=== PATIENT | female | born 1925 | race Caucasian/White ===

== ENCOUNTER 2016-11-26 12:39 | Emergency (ER) | payer MEDICARE, BC ==
[~2016-11-26] VITALS: Ht 162.6 cm; Wt 64.1 kg
[~2016-11-26 12:39] MED LIST: AMLO5TAB2 PO; ASPI-515 PO; ATEN25TA PO; CEPH-375 PO; CEPH-376 PO; CLON-365 PO; DIPH25CA61 PO; FEXO1TAB29 PO; FLUO40CA9 PO; FURO40TA6 PO; GABA600T2 PO; GLIP2.5T3 PO; IPRA0.2S35 INH; IPRA15SP2 INH; LINE600T37 PO; LISI5TAB7 PO; LORA0.5T PO; LOVA20TA2 PO; METO10TA2 PO; METO10TA82 PO; METR500T PO; OMEP40CA6 PO; POTA20TA91 PO; QUET100T PO; SERT25TA PO; SIMV10TA3 PO; SUCR1TAB26 PO
[2016-11-26] MEDS ORDERED: MAGN400T36 PO (13:13)
[2016-11-26] MEDS ORDERED: QUET400T PO (13:13)
[2016-11-26] MEDS ORDERED: CRAN300T PO (13:13)
[2016-11-26] MEDS ORDERED: GUAI-103 PO (13:13)
[2016-11-26] MEDS ORDERED: DIPH25CA61 PO (13:13)
[2016-11-26] MEDS ORDERED: CHOL20003 PO (13:13)
[2016-11-26] MEDS ORDERED: SODIUM CHLORIDE 0.9% 1,000ML IVBOLUS ONE (13:30)
[2016-11-26] MEDS ORDERED: SODIUM CHLORIDE FLUSH 10ML SYR IVF ONE (13:30)
[2016-11-26 13:59] LABS: BLOOD UREA NITROGEN 18 mg/dL (7-18)
[2016-11-26 14:04] LABS: ASPARTATE AMINO TRANSFERASE 16 U/L (15-37)
[2016-11-26 14:52] VITALS: BP 159/96
== END 2016-11-26 15:07 | disposition home or self-care (01) ==
LOC: ED 13:16
DX: R19.7 Diarrhea, unspecified (principal); K21.9 Gastro-esophageal reflux disease without esophagitis; I10 Essential (primary) hypertension; E11.9 Type 2 diabetes mellitus without complications; J44.9 Chronic obstructive pulmonary disease, unspecified; E78.00 Pure hypercholesterolemia, unspecified; Z90.49 Acquired absence of other specified parts of digestive tract; Z88.0 Allergy status to penicillin; Z87.891 Personal history of nicotine dependence
CPT/HCPCS: 36415; 80053; 83605; 83690; 85025; 96360; 96361; 99285; J7030

== ENCOUNTER 2017-04-10 17:43 | Inpatient (IN) | payer MEDICARE, BC ==
[~2017-04-10] VITALS: Ht 165.1 cm; Wt 62.0 kg
[~2017-04-10 17:43] MED LIST changes: +CHOL2000 PO; +CRAN300T PO; +GUAI-103 PO; +MAGN400T36 PO; +QUET400T PO; -SUCR1TAB26 PO; +SUCR1TAB33 PO
[2017-04-10] MEDS ORDERED: SODIUM CHLORIDE 0.9% 1,000 ML IV ONE (17:55)
[2017-04-10] MEDS ORDERED: SODIUM CHLORIDE FLUSH 10ML SYR IVF ONE (18:00)
[2017-04-10 18:12] LABS: HEMATOCRIT 34.6 % (34.6-47.8); HEMOGLOBIN 11.3 g/dL (11.7-16.4); WHITE BLOOD COUNT 13.5 x10^3/uL (3.4-10)
[2017-04-10 18:24] LABS: ASPARTATE AMINO TRANSFERASE 21 U/L (15-37); BLOOD UREA NITROGEN 21 mg/dL (7-18)
[2017-04-10 18:41] LABS: IS PT STATUS REG ER OR PRE ER? YES
[2017-04-10] MEDS ORDERED: QUET200T PO (18:50)
[2017-04-10] MEDS ORDERED: SIMV10TA3 PO (18:50)
[2017-04-10] MEDS ORDERED: mucinex PO (18:50)
[2017-04-10] MEDS ORDERED: FLUO40CA2 PO (18:50)
[2017-04-10] MEDS ORDERED: DIPH25CA61 PO (18:50)
[2017-04-10] MEDS ORDERED: ASPI-496 PO (18:50)
[2017-04-10] MEDS ORDERED: ATEN25TA PO (18:50)
[2017-04-10] MEDS ORDERED: OMEP-110 PO (18:50)
[2017-04-10] MEDS ORDERED: FEXO180T72 PO (18:50)
[2017-04-10] MEDS ORDERED: GABA600T2 PO (18:50)
[2017-04-10 19:39] LABS: PATH.CAST-FLAG NOT PRESENT; SPERM-FLAG NOT PRESENT; SRC-FLAG NOT PRESENT; XTAL-FLAG NOT PRESENT; YLC-FLAG NOT PRESENT
[2017-04-10] MEDS ORDERED: POLYETHYLENE GLYCOL 17 GM PACKET PO PRN (21:00)
[2017-04-10] MEDS ORDERED: ACETAMINOPHEN 325 MG TABLET PO PRN (21:00)
[2017-04-10] MEDS ORDERED: BISACODYL 10 MG SUPP PR PRN (21:00)
[2017-04-10] MEDS ORDERED: ONDANSETRON 2MG/ML, 2ML IVPush PRN (21:00)
[2017-04-10] MEDS ORDERED: CEFTRIAXONE PMX 1GM/50ML 50 ML ONE (21:17)
[2017-04-10] MEDS ORDERED: CEFTRIAXONE PMX 1GM/50ML 50 ML IV ONE (21:30)
[2017-04-10] MEDS ORDERED: ALBUTEROL SULFATE 2.5 MG/3 ML ONE (22:29)
[2017-04-10] MEDS ORDERED: ALBUTEROL SULFATE 2.5 MG/3 ML NPPB PRN (23:00)
[2017-04-10] MEDS: ATENOLOL 25 MG TABLET PO SCH (23:05)
[2017-04-10] MEDS: SIMVASTATIN 10 MG TABLET PO SCH (23:05)
[2017-04-10] MEDS: QUETIAPINE 200 MG TABLET PO SCH (23:05)
[2017-04-10] MEDS: HEPARIN 5,000 UNITS/ML, 1ML SQ SCH (23:06)
[2017-04-10] MEDS: LEVOFLOXACIN/PMX 500MG/100ML 100 ML IV SCH (23:07)
[2017-04-11] MEDS: LINEZOLID PMX 600MG/300ML 300 ML IV SCH ×2 (00:43→12:49)
[2017-04-11 01:36] VITALS: BP 101/55
[2017-04-11] MEDS: HEPARIN 5,000 UNITS/ML, 1ML SQ SCH ×3 (05:00→20:37)
[2017-04-11 05:40] LABS: HEMATOCRIT 30.1 % (34.6-47.8); HEMOGLOBIN 9.8 g/dL (11.7-16.4); WHITE BLOOD COUNT 12.3 x10^3/uL (3.4-10)
[2017-04-11 05:47] LABS: BLOOD UREA NITROGEN 20 mg/dL (7-18)
[2017-04-11 05:52] LABS: ASPARTATE AMINO TRANSFERASE 14 U/L (15-37)
[2017-04-11 07:35] VITALS: BP 91/46
[2017-04-11] MEDS: ALBUTEROL SULFATE 2.5 MG/3 ML NPPB SCH ×4 (07:40→20:04)
[2017-04-11] MEDS: GABAPENTIN 300 MG CAPSULE PO SCH (10:01)
[2017-04-11] MEDS: ASPIRIN 81 MG TABLET EC PO SCH (10:01)
[2017-04-11] MEDS: QUETIAPINE 200 MG TABLET PO SCH ×2 (10:01→20:37)
[2017-04-11] MEDS: LORATADINE 10 MG TABLET PO SCH (10:02)
[2017-04-11] MEDS: FLUOXETINE 20 MG CAPSULE PO SCH (10:02)
[2017-04-11] MEDS: SENNA/DOCUSATE TABLET PO SCH (10:02)
[2017-04-11] MEDS: SODIUM CHLORIDE 0.9% 1,000 ML IV SCH (12:49)
[2017-04-11 13:16] VITALS: BP 98/51
[2017-04-11 19:35] VITALS: BP 107/62
[2017-04-11] MEDS: ATENOLOL 25 MG TABLET PO SCH (20:37)
[2017-04-11] MEDS: SIMVASTATIN 10 MG TABLET PO SCH (20:37)
[2017-04-11] MEDS: LEVOFLOXACIN/PMX 500MG/100ML 100 ML IV SCH (22:27)
[2017-04-12] MEDS: LINEZOLID PMX 600MG/300ML 300 ML IV SCH (00:54)
[2017-04-12 02:59] VITALS: BP 143/55
[2017-04-12 05:09] LABS: HEMATOCRIT 30.7 % (34.6-47.8); HEMOGLOBIN 10.2 g/dL (11.7-16.4); WHITE BLOOD COUNT 6.6 x10^3/uL (3.4-10)
[2017-04-12] MEDS: SODIUM CHLORIDE 0.9% 1,000 ML IV SCH ×2 (05:30→18:38)
[2017-04-12] MEDS: HEPARIN 5,000 UNITS/ML, 1ML SQ SCH ×3 (05:30→21:20)
[2017-04-12 05:44] LABS: ASPARTATE AMINO TRANSFERASE 23 U/L (15-37); BLOOD UREA NITROGEN 14 mg/dL (7-18)
[2017-04-12 06:59] VITALS: BP 148/70
[2017-04-12] MEDS: ALBUTEROL SULFATE 2.5 MG/3 ML NPPB SCH (07:00)
[2017-04-12] MEDS: SENNA/DOCUSATE TABLET PO SCH (10:06)
[2017-04-12] MEDS: FLUOXETINE 20 MG CAPSULE PO SCH (10:06)
[2017-04-12] MEDS: QUETIAPINE 200 MG TABLET PO SCH ×2 (10:07→21:19)
[2017-04-12] MEDS: ASPIRIN 81 MG TABLET EC PO SCH (10:07)
[2017-04-12] MEDS: GABAPENTIN 300 MG CAPSULE PO SCH (10:07)
[2017-04-12] MEDS: LORATADINE 10 MG TABLET PO SCH (10:13)
[2017-04-12 14:40] VITALS: BP 136/74
[2017-04-12 19:54] VITALS: BP 171/66
[2017-04-12] MEDS: ATENOLOL 25 MG TABLET PO SCH (21:19)
[2017-04-12] MEDS: SIMVASTATIN 10 MG TABLET PO SCH (21:20)
[2017-04-12] MEDS: LEVOFLOXACIN/PMX 500MG/100ML 100 ML IV SCH (22:37)
[2017-04-13 02:37] VITALS: BP 136/68
[2017-04-13 05:53] LABS: HEMOGLOBIN 9.8 g/dL (11.7-16.4); WHITE BLOOD COUNT 6.1 x10^3/uL (3.4-10)
[2017-04-13 06:15] LABS: BLOOD UREA NITROGEN 11 mg/dL (7-18)
[2017-04-13] MEDS: HEPARIN 5,000 UNITS/ML, 1ML SQ SCH ×3 (06:26→19:30)
[2017-04-13 06:38] VITALS: BP 139/72
[2017-04-13] MEDS: ASPIRIN 81 MG TABLET EC PO SCH (09:34)
[2017-04-13] MEDS: GABAPENTIN 300 MG CAPSULE PO SCH (09:34)
[2017-04-13] MEDS: LORATADINE 10 MG TABLET PO SCH (09:34)
[2017-04-13] MEDS: FLUOXETINE 20 MG CAPSULE PO SCH (09:35)
[2017-04-13] MEDS: SENNA/DOCUSATE TABLET PO SCH (09:35)
[2017-04-13] MEDS: QUETIAPINE 200 MG TABLET PO SCH ×2 (09:35→19:30)
[2017-04-13] MEDS: SODIUM CHLORIDE 0.9% 1,000 ML IV SCH (12:31)
[2017-04-13 13:05] VITALS: BP 133/70
[2017-04-13] MEDS: ATENOLOL 25 MG TABLET PO SCH (19:30)
[2017-04-13] MEDS: SIMVASTATIN 10 MG TABLET PO SCH (19:30)
[2017-04-13 20:07] VITALS: BP 133/68
[2017-04-13] MEDS: LEVOFLOXACIN/PMX 500MG/100ML 100 ML IV SCH (22:57)
[2017-04-14] MEDS: SODIUM CHLORIDE 0.9% 1,000 ML IV SCH ×2 (03:17→19:55)
[2017-04-14 04:41] VITALS: BP 150/67
[2017-04-14] MEDS: HEPARIN 5,000 UNITS/ML, 1ML SQ SCH ×4 (05:00→23:07)
[2017-04-14 07:23] VITALS: BP 148/70
[2017-04-14] MEDS: SENNA/DOCUSATE TABLET PO SCH (09:54)
[2017-04-14] MEDS: ASPIRIN 81 MG TABLET EC PO SCH (09:55)
[2017-04-14] MEDS: QUETIAPINE 200 MG TABLET PO SCH ×2 (09:55→22:52)
[2017-04-14] MEDS: LORATADINE 10 MG TABLET PO SCH (09:55)
[2017-04-14] MEDS: GABAPENTIN 300 MG CAPSULE PO SCH (09:55)
[2017-04-14] MEDS: FLUOXETINE 20 MG CAPSULE PO SCH (09:55)
[2017-04-14 14:09] VITALS: BP 146/73
[2017-04-14 18:51] VITALS: BP 149/65
[2017-04-14] MEDS: SIMVASTATIN 10 MG TABLET PO SCH (22:52)
[2017-04-14] MEDS: ATENOLOL 25 MG TABLET PO SCH (22:52)
[2017-04-14] MEDS: LEVOFLOXACIN/PMX 500MG/100ML 100 ML IV SCH (22:54)
[2017-04-15 00:35] VITALS: BP 161/76
[2017-04-15] MEDS: HEPARIN 5,000 UNITS/ML, 1ML SQ SCH ×2 (04:33→13:00)
[2017-04-15 06:37] VITALS: BP 182/72
[2017-04-15] MEDS ORDERED: LEVO750T26 PO (08:57)
[2017-04-15] MEDS: FLUOXETINE 20 MG CAPSULE PO SCH (09:00)
[2017-04-15] MEDS: SENNA/DOCUSATE TABLET PO SCH (09:00)
[2017-04-15] MEDS ORDERED: LEVOFLOXACIN 750 MG TABLET PO SCH (09:00)
[2017-04-15] MEDS: LORATADINE 10 MG TABLET PO SCH (09:37)
[2017-04-15] MEDS: ASPIRIN 81 MG TABLET EC PO SCH (09:37)
[2017-04-15] MEDS: GABAPENTIN 300 MG CAPSULE PO SCH (09:40)
[2017-04-15] MEDS: QUETIAPINE 200 MG TABLET PO SCH (09:42)
[2017-04-15] MEDS ORDERED: FLU VACC QS2017-18 (36MOS+) UP/PF 0.5 ML IM-VACC ONE (10:30)
[2017-04-15 13:01] VITALS: BP 152/72
== END 2017-04-15 13:30 | disposition home health service (06) | DRG 682 ==
LOC: ED 20:27 → EDIP 20:30 → 4NOR 21:40 → 3NE 04-12 14:34
PROVIDERS: ADMIT Internal Medicine; ATTEND Internal Medicine
DX: N17.0 Acute kidney failure with tubular necrosis (principal); G93.40 Encephalopathy, unspecified; E44.0 Moderate protein-calorie malnutrition; J96.10 Chronic respiratory failure, unspecified whether with hypoxia or hypercapnia; B96.1 Klebsiella pneumoniae [K. pneumoniae] as the cause of diseases classified elsewhere; F03.90 Unspecified dementia, unspecified severity, without behavioral disturbance, psychotic disturbance, mood disturbance, and anxiety; E11.9 Type 2 diabetes mellitus without complications; N39.0 Urinary tract infection, site not specified; E44.1 Mild protein-calorie malnutrition; I10 Essential (primary) hypertension; B96.89 Other specified bacterial agents as the cause of diseases classified elsewhere; E86.0 Dehydration; D64.9 Anemia, unspecified; E78.00 Pure hypercholesterolemia, unspecified; J32.9 Chronic sinusitis, unspecified; J44.9 Chronic obstructive pulmonary disease, unspecified; K21.9 Gastro-esophageal reflux disease without esophagitis; F41.9 Anxiety disorder, unspecified; Z66 Do not resuscitate; Z87.891 Personal history of nicotine dependence; Z90.49 Acquired absence of other specified parts of digestive tract; Z88.0 Allergy status to penicillin
CPT/HCPCS: 36415; 70450; 71010; 72125; 80048; 80053; 81001; 82550; 82962; 83605; 84145; 84484; 85025; 87040; 87077; 87086; 87186; 93005; 94640; 96360; J0696; J1644; J1956; J2020; J7613; J7030